=== PATIENT | male | born 1960 | race Caucasian/White ===

== ENCOUNTER → 2016-11-20 | Outpatient (CLI) | payer OTHER ==
[~2016-11-20] MED LIST: ASPI81TA28 PO; CHOL2000 PO; CRS/10 PO; CYAN10004 PO; DULA0.5I SQ; EMPA1TAB PO; EMPA1TAB3 PO; GLC/500 PO; GLIM4TAB2 PO; GLYB-108 PO; LISI-729 PO; LISI40TA PO; METF1TAB53 PO
[2016-11-20 19:10] LABS: LYME DISEASE AB IGG NEG (NEG); LYME DISEASE AB IGM NEG (NEG)
[2016-11-21 06:58] LABS: ESTIMATED AVERAGE GLUCOSE 189 mg/dl; HA1C FLAG Normal (Normal)
[2016-11-26 20:18] LABS: ACETYLCHOLINE RECEP MODULATING 21; ACETYLCHOLINE RECEPT BLOCKING <15 % inhibit (<15); ANTI-CENTROMERE AB <1.0 NEG AI (<1.0 NEG); ANTI-SS-A <1.0 NEG AI (<1.0 NEG); ANTI-SS-B <1.0 NEG AI (<1.0 NEG); DNA ds CRITHIDIA NEGATIVE (NEGATIVE); RECEPTOR BINDING AB <0.30 nmol/L (<=0.30); Sm Antibody <1.0 NEG AI (<1.0 NEG)
== END | disposition home or self-care (01) ==
LOC: C.LABMFLN 13:33
PROVIDERS: ATTEND Family Medicine
DX: E11.9 Type 2 diabetes mellitus without complications (principal); R29.898 Other symptoms and signs involving the musculoskeletal system

== ENCOUNTER → 2017-03-01 | Outpatient (CLI) | payer OTHER ==
[~2017-03-01] MED LIST changes: +RXC5 PO
[2017-03-01 13:15] LABS: CALCIUM 8.8 mg/dl (8.5-10.1)
[2017-03-01 13:17] LABS: BLOOD UREA NITROGEN 25 mg/dl (7-18); BUN/CREATININE RATIO 22.5 (10-20); CARBON DIOXIDE 26 mmol/L (21-32); CHLORIDE 99 mmol/L (98-107); GLUCOSE 340 mg/dl (70-99); PHOSPHORUS 2.6 mg/dl (2.5-4.9); POTASSIUM 4.8 mmol/L (3.5-5.1); SODIUM 133 mmol/L (136-145)
[2017-03-01 13:22] LABS: ESTIMATED AVERAGE GLUCOSE 212 mg/dl; HA1C FLAG Normal (Normal)
[2017-03-01 13:30] LABS: BETA-HYDROXYBUTYRATE 1.82 mg/dL (0.2-2.81)
== END | disposition home or self-care (01) ==
LOC: C.LABMFLN 10:44
PROVIDERS: ATTEND Family Medicine
DX: E11.9 Type 2 diabetes mellitus without complications (principal)

== ENCOUNTER → 2017-04-12 | Outpatient (CLI) | payer OTHER ==
[~2017-04-12] MED LIST changes: +GADAVIST IV PRN; -RXC5 PO
--- NOTE | 2017-04-12 10:35 | DIAGNOSTIC IMAGING REPORT ---
LUMBAR SPINE COMBINATION CLINICAL HISTORY: 57 years-old Male presenting with proximal leg weakness, lumbar radiculopathy. TECHNIQUE: Multiplanar, multisequence MR imaging of the lumbar spine was performed before and after the use of intravenous contrast. IV contrast: 11.5 mL of Gadavist. COMPARISON: None. FINDINGS: The spinal canal is mildly narrow on a developmental basis in the lower lumbar spine. Fatty degenerative endplate changes noted focally at L5-S1 (Modic type II). Otherwise normal height, alignment, and bone marrow signal intensity of the vertebral bodies. Intervertebral disc desiccation and height loss at L5-S1, where there is a disc bulge and disc left paramedian disc protrusion with slight cranial migration. This appears to enhance. Additional degenerative changes detailed below: T12-L1 normal. L1-2: Normal. L2-3: Mild facet arthropathy without significant neural foraminal narrowing. L3-4: Mild facet arthropathy with minimal bilateral neural foraminal narrowing. L4-5: Facet arthropathy and ligamentum flavum hypertrophy in combination with a mild disc bulge cause mild bilateral neural foraminal narrowing. 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 However, the cauda equina does not have a buckled appearance to suggest impingement. L5-S1: Mild facet hypertrophy in combination with the disc bulge results in mild bilateral neural foraminal narrowing. Disc protrusion and cranial migration cause effacement of the left paramedian spinal canal and left lateral recess. This abuts the transiting left S1 nerve root. Spinal cord ends in good position at the inferior endplate of L1. Cauda equina crowded as mentioned above at the level of L4-5. No abnormal enhancement on postcontrast imaging. Paraspinal soft tissues normal. IMPRESSION: 1. Lower lumbar degenerative changes at L4-5 and L5-S1. In combination with a mildly narrow spinal canal, degenerative change results in focal spinal stenosis at L4-5. The cauda equina does not have a buckled appearance to suggest impingement. Correlate clinically. Disc protrusion at L5-S1 abuts the transiting left S1 nerve root. Additional degenerative changes as above. Electronically signed by: Flo Membreno M.D. 04/12/2017 10:34 AM Dictated Date/Time: 04/12/2017 10:19 AM
== END | disposition home or self-care (01) ==
LOC: C.MRI 09:04
PROVIDERS: ATTEND Physician Assistant
DX: M54.16 Radiculopathy, lumbar region (principal); R29.898 Other symptoms and signs involving the musculoskeletal system; R29.2 Abnormal reflex

== ENCOUNTER → 2017-06-14 | Outpatient (CLI) | payer OTHER ==
[~2017-06-14] MED LIST changes: -GADAVIST IV PRN
[2017-06-14 13:41] LABS: ALT/SGPT 51 U/L (12-78); AST/SGOT 21 U/L (15-37); BLOOD UREA NITROGEN 24 mg/dl (7-18); BUN/CREATININE RATIO 24.3 (10-20); CALCIUM 9.2 mg/dl (8.5-10.1); CARBON DIOXIDE 25 mmol/L (21-32); CHLORIDE 103 mmol/L (98-107); CREATININE 0.97 mg/dl (0.60-1.40); GLUCOSE 177 mg/dl (70-99); SODIUM 137 mmol/L (136-145)
[2017-06-14 13:51] LABS: ALB/GLOB RATIO 1.1 (0.9-2); ALKALINE PHOSPHATASE 60 U/L (45-117); CHOLESTEROL 239 mg/dl (0-200); CHOLESTEROL/HDL RATIO 5.4; HDL CHOLESTEROL 44 mg/dl; LDL CHOLESTEROL CALCULATED 130 mg/dl; TRIGLYCERIDES 325 mg/dl (0-150); VERY LOW DENSITY LIPOPROT CALC 65 mg/dl
[2017-06-14 18:37] LABS: ESTIMATED AVERAGE GLUCOSE 192 mg/dl; HA1C FLAG Normal (Normal)
== END | disposition home or self-care (01) ==
LOC: C.LABMFLN 10:18
PROVIDERS: ATTEND Family Medicine
DX: E11.9 Type 2 diabetes mellitus without complications (principal); E78.5 Hyperlipidemia, unspecified; Z12.5 Encounter for screening for malignant neoplasm of prostate

== ENCOUNTER → 2017-06-15 | Outpatient (CLI) | payer OTHER | END | disposition home or self-care (01) | LOC: C.LABMFLN 08:36 | PROVIDERS: ATTEND Family Medicine | DX: E11.9 Type 2 diabetes mellitus without complications (principal) ==

== ENCOUNTER → 2017-07-07 | Outpatient (CLI) | payer OTHER ==
[~2017-07-07] MED LIST changes: -EMPA1TAB PO; -GLC/500 PO; -GLYB-108 PO; -LISI-729 PO
[2017-07-07 13:15] LABS: PROTHROMBIN TIME (PATIENT) 10.5 SECONDS (9.0-12.0)
== END | disposition home or self-care (01) ==
LOC: C.LABMFLN 10:47
PROVIDERS: ATTEND Physician Assistant
DX: Z01.818 Encounter for other preprocedural examination (principal)

== ENCOUNTER 2017-07-15 08:20 | Inpatient (IN) | payer OTHER ==
[2017-07-01 11:41] VITALS: BMI 37.0
--- NOTE | 2017-07-01 12:13 | PAT Medication Instructions ---
Service Date Jul 01, 2017. Current Home Medication List Aspirin (Aspirin Ec), 81 MG PO DAILY Cholecalciferol (Vitamin D3), 1 CAP PO QAM Cyanocobalamin (Vitamin B-12 1000 Mcg), 1,000 MCG PO QAM Dulaglutide (Trulicity), 1 DOSE SQ WEDNESDAY Empagliflozin (Jardiance), 25 MG PO QAM Glimepiride (Glimepiride), 1 TAB PO BID Lisinopril (Zestril), 40 MG PO QAM Metformin Hcl (Glucophage Ext Rel), 1,000 MG PO BID Rosuvastatin Calcium (Crestor), 10 MG PO HS Medication Instructions For Your Scheduled Surgery Dulaglutide (Trulicity), 1 DOSE SQ WEDNESDAY (continue as directed) - Hold the following medications 48 hours prior to surgery: Metformin Hcl (Glucophage Ext Rel), 1,000 MG PO BID - Hold the following medications the morning of surgery: Lisinopril (Zestril), 40 MG PO QAM Glimepiride (Glimepiride), 1 TAB PO BID Cholecalciferol (Vitamin D3), 1 CAP PO QAM Cyanocobalamin (Vitamin B-12 1000 Mcg), 1,000 MCG PO QAM Empagliflozin (Jardiance), 25 MG PO QAM - Take the following medications the morning of surgery with a sip of water: Aspirin (Aspirin Ec), 81 MG PO DAILY (okay to continue per surgeon) - Take the following medications as scheduled the night before surgery: Rosuvastatin Calcium (Crestor), 10 MG PO HS If you have any questions please call us at [phone] or [phone] or [phone]
--- NOTE | 2017-07-01 13:30 | DIAGNOSTIC IMAGING REPORT ---
CHEST PREADMISSION(PA/LAT) CLINICAL HISTORY: Preoperative evaluation. COMPARISON STUDY: No previous studies for comparison. FINDINGS: The lungs volumes are normal. No pneumothorax or pleural effusion is present. Pulmonary vascularity is normal and there is no consolidation to suggest pneumonia. There are numerous old bilateral rib fractures. Cardiomediastinal silhouette is normal. IMPRESSION: No acute cardiopulmonary findings. Electronically signed by: Maulik Cotton M.D. 07/01/2017 1:29 PM Dictated Date/Time: 07/01/2017 1:28 PM
[2017-07-01 13:35] LABS: BASO % 0.8 %; BASO ABS # 0.06 K/uL (0-0.2); COMPLETE YES; EOS % 2.1 %; HEMATOCRIT 47.6 % (42-52); IG% 0.3 %; LYMPH % 36.3 %; LYMPH ABS # 2.72 K/uL (1.2-3.4); MEAN CELL VOLUME 86.5 fL (80-100); MEAN CORPUSCULAR HGB CONC 34.7 g/dl (32-36); MEAN PLATELET VOLUME 11.7 fL (7.4-10.4); MONO % 7.1 %; NEUT % 53.4 %; PLATELET COUNT 186 K/uL (130-400)
[2017-07-01 13:42] LABS: URINE APPEARANCE CLEAR (CLEAR); URINE BILIRUBIN NEG (NEG); URINE COLOR YELLOW; URINE NITRITE NEG (NEG); URINE PH 6.5 (4.5-7.5); URINE SPECIFIC GRAVITY 1.037 (1.000-1.030); UROBILINOGEN NEG (NEG); ZZUR CULT IF INDIC CLEAN CATCH NO
[2017-07-01 13:51] LABS: MANUAL MICROSCOPIC REQUIRED? NO; REVIEW REQ? NO
[~2017-07-15] VITALS: Ht 175.3 cm; Wt 114.0 kg
[2017-07-15] VITALS (9 sets, daily range): BP systolic 116–156; BP diastolic 73–102; PULSE 72–110; TEMP 36.7–37.2; O2SAT 94–98; Ht 175.3 cm; Wt 114.0 kg
[~2017-07-15 08:20] MED LIST changes: +CEFAZOLIN 2000MG IV PUSH 10 ML IV SCH; +LACTATED RINGER'S 1000ML 1,000 ML IV SCH
[2017-07-15] MEDS ORDERED: ONDANSETRON INJ 2 MG/ML 2 ML VIAL IV PRN ×2 (09:00→12:15)
[2017-07-15] MEDS ORDERED: MoRPHine SULFATE 10 MG/ML CARP/VIAL IV PRN (09:00)
[2017-07-15] MEDS ORDERED: FENTANYL CITRATE INJ 50 MCG/1 ML 2 ML VIAL IV PRN (09:00)
[2017-07-15] MEDS ORDERED: ATROPINE SULFATE 0.1 MG/ML 5ML SYR IV PRN (09:00)
[2017-07-15] MEDS ORDERED: EpHEDrine SULFATE INJ 50 MG/ML AMP IV PRN (09:00)
--- NOTE | 2017-07-15 09:35 | History & Physical Bridge Note ---
H&P Re-Evaluation Bridge Note: I have examined the patient, reviewed the History & Physical and in the interval since the performance of the History & Physical I have noted the following changes of clinical significance: No changes noted
--- NOTE | 2017-07-15 09:36 | History and Physical ---
History & Physical Date Jul 15, 2017. Chief Complaint Back and leg pain History of Present Illness The patient is a 57 year old male with complaints of back and leg pain Additional History Hepatic Disease: No Endocrine Disorder: No Kidney Disease: No Hypertension: Yes Heart Disease: No Bleeding Tendencies: No Infectious Diseases: No Allergies Coded Allergies: No Known Allergies (Verified , 07/15/17) Home Medications Scheduled Aspirin (Aspirin Ec), 81 MG PO DAILY Cholecalciferol (Vitamin D3), 1 CAP PO QAM Cyanocobalamin (Vitamin B-12 1000 Mcg), 1,000 MCG PO QAM Dulaglutide (Trulicity), 1 DOSE SQ WEDNESDAY Empagliflozin (Jardiance), 25 MG PO QAM Glimepiride (Glimepiride), 1 TAB PO BID Lisinopril (Zestril), 40 MG PO QAM Metformin Hcl (Glucophage Ext Rel), 1,000 MG PO BID Physical Examination Skin: warm/dry, no rash Eyes: normal inspection, EOMI, sclerae normal ENT: normal ENT inspection, pharynx normal Head: normocephalic, atraumatic Neck: supple, no adenopathy, trachea midline Respiratory/Chest: lungs clear, normal breath sounds, no respiratory distress Cardiovascular: regular rate, rhythm, no edema, no murmur Abdomen / GI: normal bowel sounds, non tender Back: normal inspection Extremities: normal inspection, normal range of motion Neurologic/Psych: no motor/sensory deficits, alert, normal reflexes, oriented x 3 Diagnosis Lumbar spinal stenosis Plan of Treatment Lumbar decompression fusion L4 to S1
[2017-07-15] MEDS ORDERED: BACITRACIN 50000 UNIT VIAL ONE (09:52)
[2017-07-15] MEDS ORDERED: BUPIVACAINE/EPINEPHRINE 0.5% MPF 1:200,000 30 ML VIAL ONE (09:52)
[2017-07-15] MEDS ORDERED: DEXAMETHASONE SOD INJ 4 MG/ML VIAL ONE (09:57)
[2017-07-15] MEDS ORDERED: LIDOCAINE HCL 2% 2 ML VIAL (20MG/ML) ONE (09:57)
[2017-07-15] MEDS ORDERED: MIDAZOLAM HCL 1 MG/ML 2ML VIAL ONE (09:57)
[2017-07-15] MEDS ORDERED: FENTANYL CITRATE INJ 50 MCG/1 ML 2 ML VIAL ONE (09:57)
[2017-07-15] MEDS ORDERED: NEOSTIGMINE METHYLSULFATE 1 MG/ML 10ML VIAL ONE (09:57)
[2017-07-15] MEDS ORDERED: ONDANSETRON INJ 2 MG/ML 2 ML VIAL ONE ×2 (09:57→12:20)
[2017-07-15] MEDS ORDERED: PROPOFOL IV EMULSION 10 MG/ML 20 ML VIAL IV ONE (09:57)
[2017-07-15] MEDS ORDERED: GLYCOPYRROLATE INJ 0.2 MG/ML VIAL ONE (09:57)
[2017-07-15] MEDS ORDERED: HYDROmorphone INJ 2 MG/ML SYR/VIAL ONE (10:43)
[2017-07-15] MEDS ORDERED: PHENYLEPHRINE HCL INJ 10 MG/ML VIAL ONE (11:26)
[2017-07-15] MEDS ORDERED: PHENYLEPHRINE 100MCG/ML 5ML SYR ONE (11:26)
[2017-07-15] MEDS ORDERED: FLOSEAL HEMOSTATIC MATRIX 10ML TOP ONE (12:09)
[2017-07-15] MEDS ORDERED: SODIUM CHLORIDE 0.9% 1000ML 1,000 ML IV SCH (12:13)
[2017-07-15] MEDS ORDERED: MAGNESIUM HYDROXIDE SUSP 30 ML UDC PO PRN (12:15)
[2017-07-15] MEDS ORDERED: ACETAMINOPHEN IV 100 ML IV PRN (12:15)
[2017-07-15] MEDS ORDERED: PROMETHAZINE HCL INJ 12.5 MG in SODIUM CHLORIDE 0.9% 50ML 50 ML IV PRN (12:15)
[2017-07-15] MEDS ORDERED: NALOXONE HCL 0.4 MG/1 ML VIAL/CARP IV PRN ×2 (12:15)
[2017-07-15] MEDS ORDERED: hydrOXYzine HCL 25 MG TAB PO PRN (12:15)
[2017-07-15] MEDS ORDERED: FAMOTIDINE 20 MG TAB PO PRN (12:15)
[2017-07-15] MEDS ORDERED: ACETAMINOPHEN 500 MG TAB PO PRN (12:15)
[2017-07-15] MEDS ORDERED: DULAGLUTIDE SQ SCH (12:15)
[2017-07-15] MEDS ORDERED: BISACODYL 10 MG SUPP PR PRN (12:15)
[2017-07-15] MEDS ORDERED: LORAZEPAM INJ 0.5 MG in SYRINGE 0 ML IV PRN (12:15)
[2017-07-15] MEDS ORDERED: DO NOT ADMINISTER PNEUMOCOCCAL VACCINE PRN ×2 (12:15)
[2017-07-15] MEDS ORDERED: SOD PHOSPHATE/SOD BIPHOSPHATE ENEMA 132 ML BTL PR PRN (12:15)
[2017-07-15] MEDS ORDERED: ALUMINUM/MAGNESIUM SUSP 30 ML UDC PO PRN (12:15)
[2017-07-15] MEDS ORDERED: DO NOT ADMINISTER FLU VACCINE PRN ×3 (12:15)
[2017-07-15] MEDS ORDERED: LORAZEPAM 0.5 MG TAB PO PRN (12:15)
[2017-07-15] MEDS ORDERED: METOCLOPRAMIDE HCL INJ 5 MG/ML 2 ML VIAL IV PRN (12:15)
--- NOTE | 2017-07-15 12:19 | [facility] Operative Report ---
Operative Report Operative Date Jul 15, 2017. Pre-Operative Diagnosis Lumbar Spinal Stenosis Post-Operative Diagnosis same Procedure(s) Performed #1 lumbar decompression medial facetectomies foraminotomies L4 5 L5-S1. #2 posterior spinal fusion L4 5 L5-S1. #3 placement of posterior segmental instrumentation L4 5 L5-S1. #4 interbody fusion L5-S1. #5 placement peek cage 10 x 26 mm L5-S1. #6 placement locally harvested morcellized autograft and posterior gutters. #7 placement of ostial amp bone graft in the interbody space and posterior lateral gutters. Surgeon Dr. Vitor Escalera Anesthesiologist Surgeon(s) Yudy Escalante PA-C Estimated Blood Loss 400 ml Findings Severe spinal stenosis Specimens none per surgeon Description of Procedure Patient was met with preoperatively case discussed all questions addressed. After informed consent obtained patient was taken back to the operative suite underwent intubation placed in a prone position the [place] table top [place] frame. All bony prominences well-padded eyes inspected to ensure no external pressure placed upon them. This point the lumbar spine was prepped and draped nostril fashion. Sharp dissection with the assistance of Bovie cautery was performed onto an exposing the lamina and transverse processes of L4-L5 and sacral alar bilaterally. From a caudal to cephalad fashion complete laminectomy of L5 L4 was performed addressing severe lateral recess and foraminal stenosis. Pedicle screws are then placed in L4-L5 and S1 levels bilaterally with assistance of fluoroscopy the purposes kayla placed. Through a transforaminal approach a left complete discectomy of L5-S1 was performed and plate created to subcortical bleeding bone and a 10 x 22 mm peek cage filled with ostial amp bone graft tapped in position. Brought to then locked and final position bilaterally. The transverse processes of L4 L5 and sacral alar burred to subcortical bleeding bone. The remaining ostial amp local harvested morcellized autograft was placed and posterior gutters. Rods were locked and final position. 15 round CLARITA drain inserted. Incision was then closed with 1 Vicryl fascia 2-0 Vicryl subcutaneous tediously 4 Monocryl for Isatu closure Steri-Strips sterile dressings placed patient we can take PACU stable condition. Please note Yudy Garibay was present throughout the entire procedure involved in patient positioning complex portions of the surgery and final skin closure. I attest to the content of the Intraoperative Record and any orders documented therein. Any exceptions are noted below.
--- NOTE | 2017-07-15 12:19 | DIAGNOSTIC IMAGING REPORT ---
LUMBAR SPINE, INTRAOPERATIVE FLUOROSCOPY HISTORY: L4-S1 decompression and fusion. FLUOROSCOPY TIME: 19 seconds. FINDINGS: Intraoperative fluoroscopy was provided for the lumbar spine. 2 fluoroscopic spot images were obtained. Posterior decompression fusion from L4 through S1 with pedicle screws and rods. The hardware appears intact. IMPRESSION: Fluoroscopy provided for a L4-S1 posterior decompression and fusion. Electronically signed by: Lester Wood M.D. 07/15/2017 12:18 PM Dictated Date/Time: 07/15/2017 12:17 PM
[2017-07-15] MEDS ORDERED: ROCURONIUM BROMIDE 10 MG/ML 5 ML VIAL IV ONE (12:20)
[2017-07-15] MEDS ORDERED: PHARMACY GLYCEMIC MGMT CONSULT SCH (12:35)
[2017-07-15] MEDS: HYDROmorphone HCL 0.5MG/ML 50 ML CASSETTE IV PRN ×4 (12:47→23:14)
--- NOTE | 2017-07-15 13:07 | Anesthesiology Progress Note ---
Anesthesia Post Op Note Date & Time Jul 15, 2017 at 13:07 Vital Signs Pain Intensity: 0 Vital Signs Past 12 Hours Date Time Temp Pulse Resp B/P (MAP) Pulse Ox O2 Delivery O2 Flow Rate FiO2 07/15/17 12:35 36.8 79 11 98/87 95 Oxymask 10 07/15/17 08:40 37 103 20 156/102 94 Room Air Notes Mental Status: alert / awake / arousable, participated in evaluation Pt Amnestic to Procedure: Yes Nausea / Vomiting: adequately controlled Pain: adequately controlled Airway Patency, RR, SpO2: stable & adequate BP & HR: stable & adequate Hydration State: stable & adequate Anesthetic Complications: no major complications apparent
[2017-07-15] MEDS: LACTATED RINGER'S 1000ML 1,000 ML IV SCH ×2 (14:43→18:12)
--- NOTE | 2017-07-15 14:52 | Pharmacy Progress Note ---
Glycemic Control Intl Consult Date of Service Jul 15, 2017. Scope Glycemic Pharmacist consulted by Dr Escalera on 07/15/17 for glycemic control and to write orders per [facility] inpatient glycemic control protocol Objective Weight (Kilograms): 114.000 Accuchecks BSG (last 24hrs): Test 07/15/17 08:48 07/15/17 12:39 Bedside Glucose 134 mg/dl (70-99) 104 mg/dl (70-99) Recent Pertinent Medications Outpatient Anti-diabetic Regimen: * Trulicity once weekly, Jardiance 25 mg PO daily, Amaryl 4 mg PO BID, and metformin 1000 mg PO BID * A1c = 8.3 % 06/14/17 Risk Factors for Insulin Resistance: * Steroids: dexamethasone 8 mg IV x 1 in OR then 6 mg IV q8 hours x 3 doses * IVF: LR @150 mLs/hr * Recent Surgery: POD 0 for lumbar surgery * Diet: type 2 diabetic diet Assessment & Plan ASSESSMENT: * ADA & AACE recommend a goal blood sugar range 140-180 mg/dl for the majority of critically ill & non-critically ill patients. However, more stringent targets may be selected in individual cases. Will utilize more stringent goal of 110-140mg/dl based on patient age & comorbidities. Additionally, tighter glycemic control is warranted to facilitate wound healing. * Mr Styles is a 57 y/o M who was admitted after lumbar surgery with Dr Escalera. He is moderately controlled on three oral medications and an injectable GLP-1. The patient received high doses of steroids today, and these will continue until 10 AM tomorrow. Traditional dosing for Dr Escalera's steroids injection will be utilized. * For Lantus, full 24 hour weight based stress of 3 will be utilized today with stress of 2 and stress of 1 dosing utilized tomorrow. Dosing may change based upon patient response. Correctional insulin will also be utilized as weight- based stress of 3 currently and then this will be loosened tomorrow as appropriate. * Pt is maintained on oral antidiabetic agents as an outpatient * Oral agents are not recommended for inpatient use d/t drug interactions, changing PO intake, and difficulty titrating for acute hyper/hypoglycemia. ADA recommends re-initiating outpatient oral agents 1-2 days prior to discharge if/ when appropriate if they were held on admission. * oral medications will be held. Plan to restart metformin on POD 2 if adequate oral function and renal function established. PLAN FOR INPATIENT GLYCEMIC CONTROL: * Holding outpatient oral diabetes medications * Basal insulin with LANTUS 56 units SQ x 1 then Lantus 20 -30 units tomorrow morning (Lantus 20 units if BSG less than 180 mg/dL and 30 units if above 180 mg /dL) then Lantus 10 units tomorrow evening * Correctional Insulin with NOVOLOG per scale ACHS or Q6hrs while NPO * Goal Range: Low 110 mg/dL - High 140 mg/dL * Correction Factor: 15 mg/dL/unit * Nutritional / Prandial insulin per carb ratio of 1 unit per 5 grams CHO consumed * Please note that the plan above was derived based on current level of insulin resistance and hospital stress. These recommendations are appropriate for inpatient admission only. Plan of care upon discharge will need to be reassessed to avoid potential outpatient hypo/hyperglycemia. Thank you.
[2017-07-15] MEDS: INSULIN ASPART 100 UNITS/ML 3 ML PEN SC SCH ×3 (15:58→21:08)
[2017-07-15] MEDS ORDERED: INSULIN GLARGINE SOLOSTAR 100 UNITS/ML 3 ML PEN SC SCH ×2 (17:45)
[2017-07-15] MEDS: CEFAZOLIN IV 2,000 MG in SYRINGE 0 ML IV SCH (18:12)
[2017-07-15] MEDS: DEXAMETHASONE INJ 6 MG in SYRINGE 0 ML IV SCH (20:28)
[2017-07-15] MEDS: DOCUSATE SODIUM/SENNA 50/8.6MG TAB PO SCH (20:29)
[2017-07-16] VITALS (8 sets, daily range): BP systolic 100–144; BP diastolic 65–89; PULSE 82–118; TEMP 36.6–37; O2SAT 90–95
[2017-07-16] MEDS: INSULIN ASPART 100 UNITS/ML 3 ML PEN SC SCH ×6 (00:18→21:55)
[2017-07-16] MEDS: LACTATED RINGER'S 1000ML 1,000 ML IV SCH (00:19)
[2017-07-16] MEDS: CEFAZOLIN IV 2,000 MG in SYRINGE 0 ML IV SCH (02:14)
[2017-07-16] MEDS: DEXAMETHASONE INJ 6 MG in SYRINGE 0 ML IV SCH ×2 (04:04→12:48)
[2017-07-16] MEDS ORDERED: DC PCA ONE (06:00)
[2017-07-16] MEDS ORDERED: HYDROmorphone INJ 1 MG/ML SYR IV PRN (06:00)
[2017-07-16] MEDS ORDERED: HYDROmorphone INJ 0.5 MG/0.5 ML SYR IV PRN (06:00)
[2017-07-16 06:12] LABS: BASO % 0.1 %; BASO ABS # 0.01 K/uL (0-0.2); COMPLETE YES; HEMATOCRIT 40.9 % (42-52); IG% 0.2 %; LYMPH % 7.5 %; LYMPH ABS # 0.95 K/uL (1.2-3.4); MEAN CELL VOLUME 85.9 fL (80-100); MEAN CORPUSCULAR HEMOGLOBIN 29.4 pg (25-34); MEAN CORPUSCULAR HGB CONC 34.2 g/dl (32-36); MEAN PLATELET VOLUME 10.9 fL (7.4-10.4); MONO % 4.8 %; NEUT % 87.4 %; PLATELET COUNT 172 K/uL (130-400); RED BLOOD COUNT 4.76 M/uL (4.7-6.1)
[2017-07-16] MEDS ORDERED: NURSING VERBAL MED ORDER ONE (06:15)
[2017-07-16 06:26] LABS: BUN/CREATININE RATIO 15.4 (10-20); CALCIUM 8.7 mg/dl (8.5-10.1); CREATININE 0.96 mg/dl (0.60-1.40)
[2017-07-16] MEDS: OXYCODONE HCL IR 5 MG TAB (IMMEDIATE RELEASE) PO PRN ×3 (08:05→22:05)
--- NOTE | 2017-07-16 08:28 | Anesthesiology Progress Note ---
Anesthesia Post Op Note Date & Time Jul 16, 2017 at 08:27 Vital Signs Pain Intensity: 7.0 Vital Signs Past 12 Hours Date Time Temp Pulse Resp B/P (MAP) Pulse Ox O2 Delivery O2 Flow Rate FiO2 07/16/17 07:16 36.9 106 16 126/79 (95) 91 Room Air 07/16/17 07:00 Room Air 07/16/17 06:42 103 07/16/17 04:02 37.0 112 18 116/78 (91) 95 Nasal Cannula 4.0 07/16/17 00:15 Nasal Cannula 07/15/17 23:14 37.0 110 17 121/81 (94) 95 Nasal Cannula 4.0 Notes Mental Status: alert / awake / arousable, participated in evaluation Pt Amnestic to Procedure: Yes Nausea / Vomiting: adequately controlled Pain: adequately controlled Airway Patency, RR, SpO2: stable & adequate BP & HR: stable & adequate Hydration State: stable & adequate Anesthetic Complications: no major complications apparent
[2017-07-16] MEDS: ASPIRIN 81 MG ECTAB PO SCH (08:34)
[2017-07-16] MEDS: LISINOPRIL 40 MG TAB PO SCH (08:35)
[2017-07-16] MEDS ORDERED: INSULIN GLARGINE SOLOSTAR 100 UNITS/ML 3 ML PEN SC SCH ×4 (09:00→21:00)
[2017-07-16] MEDS ORDERED: NON-FORMULARY MEDICATION (Empagliflozin (Jardiance) 25 MG) PO SCH (09:00)
[2017-07-16] MEDS ORDERED: KETOROLAC TROMETHAMINE 30 MG/ML VIAL IV PRN (10:15)
--- NOTE | 2017-07-16 10:32 | Pharmacy Progress Note ---
Glycemic Control Progress Note Date of Service Jul 16, 2017. Scope Glycemic Pharmacist consulted for glycemic control to write orders per [facility] inpatient glycemic control protocol. Objective Accuchecks BSG (last 24hrs): Test 07/15/17 12:39 07/15/17 17:09 07/15/17 20:49 07/16/17 00:14 Bedside Glucose 104 mg/dl (70-99) 146 mg/dl (70-99) 151 mg/dl (70-99) 170 mg/dl (70-99) Test 07/16/17 04:05 07/16/17 05:38 07/16/17 07:39 Bedside Glucose 194 mg/dl (70-99) 165 mg/dl (70-99) Random Glucose 156 mg/dl (70-99) Recent Pertinent Medications The patient is currently receiving: * Basal insulin: Lantus 48 units SQ qPM on 07/15 * Correctional Insulin: Novolog Correction per scale ACHS Goal Range: Low 110 mg/dL - High 140 mg/dL Correction Factor: 15 mg/dL/unit * Prandial insulin: Per carb ratio of 1 unit per 5 grams CHO consumed * Oral Agents: on hold Outpatient Anti-Diabetic Meds Outpatient Anti-diabetic Regimen: * Trulicity once weekly, Jardiance 25 mg PO daily, Amaryl 4 mg PO BID, and metformin 1000 mg PO BID * A1c = 8.3 % 06/14/17 Assessment & Plan ASSESSMENT: * See progress note from 07/15/17 for more background info, in short: * Pt receiving SQ basal bolus insulin regimen for hyperglycemia secondary to baseline DM (outpatient regimen on hold), stress, recent surgery, steroids * Dexamethasone IV post operatively - last dose to be given today at 1200 * Patient received 65 units of insulin yesterday (not indicative of 24 hour needs): * 48 units of basal insulin * 17 units of prandial/correctional insulin * BSGs ranging 104 - 194 mg/dl over the past 24hrs * Changes needed to insulin regimen: * AM Fasting BSG = 165 mg/dl. This is slightly above goal range for patient based on inpatient targets and co-morbidities. I have adjusted Lantus dose parameters so that he receives 30 units this morning. Continue Lantus per scale HS. * Post-prandial BSGs are elevated due to IV steroids, therefore I will tighten CF/CR. This will likely need to be loosened 07/17 am as the effect of steroids will have worn off. PLAN FOR INPATIENT GLYCEMIC CONTROL: * Oral Agents * Continue to hold outpatient oral diabetes medications. * Resume metformin on 07/17. * Basal insulin - increase * Lantus 30 units SQ qAM * Lantus 10-20 SQ HS (10 units for BSG less than 150, 20 units for BSG 150 or more) * Bolus insulin - tighten * NovoLog per scale ACHS or Q6hrs while NPO * Goal Range: Low 110 mg/dL - High 140 mg/dL * Correction Factor: 12 mg/dL/unit * Nutritional / Prandial insulin per carb ratio of 1 unit per 4 grams CHO consumed RECOMMENDATIONS FOR DISCHARGE: * A1c 8.3% (06/14/17) - better control desired * Patient is on max dose of oral agents + Trulicity (GLP-1 receptor agonist) * Consider addition of insulin to home regimen. This can be achieved by adding once daily Lantus or substituting a combination product (basal insulin + GLP-1) in place of Trulicity. Decision should be based on patient preference and insurance coverage. * Option 1: Add Lantus 20 units SQ once daily * Option 2: Add Lantus/lixisenatide (Soliqua) 15 units/5 mcg SQ once daily, discontinue Trulicity * Please note that the plan above was derived based on current level of insulin resistance and hospital stress. These recommendations are appropriate for inpatient admission only. Plan of care upon discharge will need to be reassessed to avoid potential outpatient hypo/hyperglycemia. Thank you.
--- NOTE | 2017-07-16 12:23 | Progress Note ---
Progress Note Date of Service Jul 16, 2017. Progress Note Patient is doing quite well postop day 1. Back pain is controlled. Leg pain markedly improved. Vital signs are stable. He's on physical exam ambulating the halls comfortably. Good strength testing. Assessment status post lumbar decompression fusion. Planned this time will continue physical therapy advance his bowel regiment anticipate home this weekend.
[2017-07-16] MEDS ORDERED: RXC5 PO (12:40)
--- NOTE | 2017-07-16 12:41 | Discharge Instructions ---
Discharge Instructions Date of Service Jul 16, 2017. Admission Reason for Admission: Spinal Stenosis Discharge Discharge Diagnosis / Problem: lumber stenosis Discharge Goals Goal(s): Improve function Activity Recommendations Activity Limitations: per Instructions/Follow-up section . Instructions / Follow-Up Instructions / Follow-Up ACTIVITY RECOMMENDATIONS: SELF CARE INSTRUCTIONS AFTER THORACIC/LUMBAR FUSIONS 1. You may walk to your tolerance. It is good exercise for your legs and back. Expect some back and intermittent leg aches and pains. 2. You may perform "counter-top" level activities (make a sandwich, tam with a project, etc.). 3. No bending or lifting of more than 10 pounds or back twisting of any nature (roll like a log when turning in bed). 4. You may ride in a car for 20-30 minutes at a time. No driving until after your first visit with your doctor. 5. Frequent changes of position and restricting sitting to 30 minutes at a time will help limit the amount of back spasms and stiffness you may experience. 6. You may discontinue the use of ambulatory aids (cane, crutches, etc.) once your strength and confidence allow. 7. You may hvac r instructor the shower and let water strike your incision when you arrive home at least once daily. Do not take a tub bath, sit in a hot tub or go into a swimming pool until after your first recheck in the office. SPECIAL CARE INSTRUCTIONS: VERY IMPORTANT TO READ AND REVIEW A. Your surgical incision has been closed with a cosmetic suture under the skin that will dissolve in about 6 weeks. In 14 days, you can use a pair of clean scissors and cut the suture that is left outside of the skin at the ends of your incision. 1. The small skin tapes can be removed 7 days after surgery if they have not fallen off by that point. 2. You may keep the wound open to air as much as possible to promote healing after post-op day number 5 unless told otherwise by your doctor. 3. If you think the wound looks like it is becoming infected (redness or worsening drainage) and/or you are experiencing fever, chill or worsening back pain and muscle spasms, contact the office so that we may evaluate you as soon as possible. B. Complications are uncommon, but please contact us if you have any signs or symptoms of: 1. wound infection (fever higher than 102.5 degrees F, redness, separation of wound, drainage, or increasing pain from the incision) 2. blood clots in legs (pain, swelling, redness and warmth in legs) 3. urinary tract infection (fever higher than 102.5 degrees F, burning upon urination or increased frequency of urination) 4. nerve problems (inability to walk on your toes or heels, numbness, loss of bowel or bladder control) 5. any other symptoms that concern you C. Please call the office at if you have any concerns or questions about your operation or recovery. D. No smoking! Smoking drastically decreases the chance of a solid fusion. E. Do not take any anti-inflammatory medications (Indocin, Advil, Motrin, Aspirin, Naprosyn, etc.) as these may inhibit the chance of a solid fusion. Tylenol is okay to take for pain. MANAGING PAIN AFTER SPINAL SURGERY 1. Narcotic medication is intended for short-term use and will be provided for surgical pain. Surgical pain usually lasts for a period of 4-6 weeks. Narcotic medication includes Percocet, Vicodin, Darvocet, Tylenol #3 or Lortab. 2. Longer-term pain is more appropriately treated with non-narcotic medication such as Tylenol ES. 3. Muscle spasm is not appropriately treated with narcotics. Muscle relaxers such as Soma, Flexeril or Skelaxin can be used along with Tylenol ES. 4. Remember that we all live with some "aches and pains". This is not unusual or uncommon after an injury or as we get older. a. Back pain is expected and may include muscle spasms for 4 to 6 weeks after surgery. The pain should gradually improve. If the pain worsens for no apparent reason, please contact the office. b. Intermittent leg pain may also be experienced and should not be concerned about unless it worsens for no apparent reason. If so, please contact the office. 5. We will provide appropriate medication within the normal guidelines of their prescribed use. We will also be very cautious and aware of potential abuse and extended duration of patients' medication needs. a. Pain medications are for your comfort and to assist with sleep and rest so that the tissue can heal. They are not provided in order to return to normal activity and should not be used through the day. To do so or worsening pain at night can result from ongoing tissue damage and development of tolerance to the prescribed medicine. 6. Please allow 2-3 days to process refills. Prescriptions will not be mailed but must be picked up at the office. FOLLOW UP VISIT: Keep your scheduled follow-up appointment. Any questions, please call the office at . Current Hospital Diet Patient's current hospital diet: Diabetes Type 2 Diet Discharge Diet Recommended Diet: Regular Diet Procedures Procedures Performed: #1 lumbar decompression medial facetectomies foraminotomies L4 5 L5-S1. #2 posterior spinal fusion L4 5 L5-S1. #3 placement of posterior segmental instrumentation L4 5 L5-S1. #4 interbody fusion L5-S1. #5 placement peek cage 10 x 26 mm L5-S1. #6 placement locally harvested morcellized autograft and posterior gutters. #7 placement of ostial amp bone graft in the interbody space and posterior lateral gutters. Pending Studies Studies pending at discharge: no Laboratory Results Hemoglobin A1c Test 06/14/17 10:23 Range/Units Estimated Average Glucose 192 mg/dl Hemoglobin A1c 8.3 H 4.5-5.6 % Lipid Panel Test 06/14/17 10:23 Range/Units Triglycerides Level 325 H 0-150 mg/dl Cholesterol Level 239 H 0-200 mg/dl HDL Cholesterol 44 mg/dl Cholesterol/HDL Ratio 5.4 LDL Cholesterol, Calculated 130 mg/dl Medical Emergencies . Who to Call and When: Medical Emergencies: If at any time you feel your situation is an emergency, please call 911 immediately. . Non-Emergent Contact Non-Emergency issues call your: Primary Care Provider . "Provider Documentation" section prepared by Vitor Escalera. . VTE Core Measure Inpt VTE Proph given/why not?: Risa Mejia, SCD's
[2017-07-16] MEDS: DOCUSATE SODIUM/SENNA 50/8.6MG TAB PO SCH (21:52)
[2017-07-17] MEDS: INSULIN ASPART 100 UNITS/ML 3 ML PEN SC SCH ×6 (00:08→21:00)
[2017-07-17] MEDS: POLYETHYLENE (MIRALAX) 17 GM PACK PO SCH ×3 (05:38→17:53)
[2017-07-17 07:46] VITALS: BP 130/77; PULSE 96; TEMP 36.7; O2SAT 93
[2017-07-17] MEDS: ASPIRIN 81 MG ECTAB PO SCH (08:41)
[2017-07-17] MEDS: LISINOPRIL 40 MG TAB PO SCH (08:42)
[2017-07-17] MEDS: METFORMIN HCL 500 MG TAB PO SCH ×2 (08:42→17:58)
[2017-07-17] MEDS: OXYCODONE HCL IR 5 MG TAB (IMMEDIATE RELEASE) PO PRN ×3 (08:52→17:59)
--- NOTE | 2017-07-17 09:40 | Progress Note ---
Progress Note Date of Service Jul 17, 2017. Progress Note Back pain is controlled leg pain markedly improved. Vital signs are stable. An exam he is interior bedside as good strength testing. Assessment status post lumbar decompression fusion replant this time possible discharge home Wednesday.
[2017-07-17] MEDS: INSULIN GLARGINE SOLOSTAR 100 UNITS/ML 3 ML PEN SC SCH ×2 (10:09→21:06)
--- NOTE | 2017-07-17 13:03 | Pharmacy Progress Note ---
Glycemic Control Progress Note Date of Service Jul 17, 2017. Scope Glycemic Pharmacist consulted for glycemic control to write orders per [facility] inpatient glycemic control protocol. Objective Accuchecks BSG (last 24hrs): Test 07/16/17 17:09 07/16/17 21:16 07/17/17 00:04 07/17/17 03:46 Bedside Glucose 201 mg/dl (70-99) 177 mg/dl (70-99) 165 mg/dl (70-99) 140 mg/dl (70-99) Test 07/17/17 08:15 07/17/17 11:47 Bedside Glucose 124 mg/dl (70-99) 112 mg/dl (70-99) Recent Pertinent Medications The patient is currently receiving: * Basal insulin: Lantus 30 units qAM + 20 units qPM (07/16) * Correctional Insulin: Novolog Correction per scale ACHS Goal Range: Low 110 mg/dL - High 140 mg/dL Correction Factor: 12 mg/dL/unit * Prandial insulin: Per carb ratio of 1 unit per 4 grams CHO consumed * Oral Agents: on hold Outpatient Anti-Diabetic Meds * Trulicity once weekly, Jardiance 25 mg PO daily, Amaryl 4 mg PO BID, and metformin 1000 mg PO BID * A1c = 8.3 % 06/14/17 Assessment & Plan ASSESSMENT: * See progress note from 07/15/17 for more background info, in short: * Pt receiving SQ basal bolus insulin regimen for hyperglycemia secondary to baseline DM (outpatient regimen on hold), stress, recent surgery * Patient received 113 units of insulin yesterday * 50 units of basal insulin * 63 units of prandial/correctional insulin * BSGs ranging 124 - 216 mg/dl over the past 24hrs * Changes needed to insulin regimen: * AM Fasting BSG = 124 mg/dl. This is at goal range for patient based on inpatient targets and co-morbidities. * Post-prandial BSGs are at goal. * Will decrease both basal and bolus insulin since effect of steroids has worn off. PLAN FOR INPATIENT GLYCEMIC CONTROL: * Metformin 1000 mg PO BID * Continuing to hold other oral agents + Trulicity * Basal insulin - decrease * Lantus 0-10 units SQ q12 (0 units for BSG less than 100, 10 units for BSG 100 or more) * Bolus insulin - loosen * NovoLog per scale ACHS or Q6hrs while NPO * Goal Range: Low 110 mg/dL - High 140 mg/dL * Correction Factor: 18 mg/dL/unit * Nutritional / Prandial insulin per carb ratio of 1 unit per 6 grams CHO consumed RECOMMENDATIONS FOR DISCHARGE: * A1c 8.3% (06/14/17) - better control desired * Patient is on max dose of oral agents + Trulicity (GLP-1 receptor agonist) * Consider addition of insulin to home regimen. This can be achieved by adding once daily Lantus or substituting a combination product (basal insulin + GLP-1) in place of Trulicity. Decision should be based on patient preference and insurance coverage. * Option 1: Add Lantus 20 units SQ once daily * Option 2: Add Lantus/lixisenatide (Soliqua) 15 units/5 mcg SQ once daily, discontinue Trulicity * Please note that the plan above was derived based on current level of insulin resistance and hospital stress. These recommendations are appropriate for inpatient admission only. Plan of care upon discharge will need to be reassessed to avoid potential outpatient hypo/hyperglycemia. Thank you.
[2017-07-17 15:49] VITALS: BP 109/70; PULSE 90; TEMP 36.7; O2SAT 93
[2017-07-17] MEDS ORDERED: NURSING VERBAL MED ORDER ONE (18:15)
[2017-07-17] MEDS: DOCUSATE SODIUM/SENNA 50/8.6MG TAB PO SCH (21:03)
[2017-07-17 23:07] VITALS: BP 102/67; PULSE 90; TEMP 36.8; O2SAT 95
[2017-07-18] MEDS: OXYCODONE HCL IR 5 MG TAB (IMMEDIATE RELEASE) PO PRN ×3 (02:22→13:01)
[2017-07-18 07:00] VITALS: BP 114/73; PULSE 83; TEMP 36.8; O2SAT 92
[2017-07-18] MEDS: LISINOPRIL 40 MG TAB PO SCH (08:43)
[2017-07-18] MEDS: ASPIRIN 81 MG ECTAB PO SCH (08:44)
[2017-07-18] MEDS: METFORMIN HCL 500 MG TAB PO SCH (08:45)
[2017-07-18] MEDS: INSULIN ASPART 100 UNITS/ML 3 ML PEN SC SCH ×2 (08:50→12:55)
[2017-07-18] MEDS: INSULIN GLARGINE SOLOSTAR 100 UNITS/ML 3 ML PEN SC SCH (08:51)
--- NOTE | 2017-07-18 10:23 | Discharge Summary ---
Orthopedic Discharge Summary Admission Date/Reason Jul 15, 2017 at 09:30 Spinal Stenosis. Discharge Date/Disposition Jul 18, 2017 Home Diagnosis Principal Diagnosis: Lumbar spinal stenosis Admission Physical Exam As per Admitting History & Physical. Hospital Course Patient underwent lumbar decompression fusion tolerated this well as taken to the orthopedic floor postoperatively. Postoperative day #1 he was up and amatory progressed to postoperative day #2 posterior. #3 pain was well- controlled CLARITA drain decreased appropriately subsequent discharge home discharge orders and instructions found the chart for further review Discharge Instructions Please refer to the electronic Patient Visit Report (Discharge Instructions) for additional information.
[2017-07-18 10:53] VITALS: BP 114/73; PULSE 83; TEMP 36.8; O2SAT 92
== END 2017-07-18 15:00 | disposition home or self-care (01) | DRG 460 ==
LOC: C.ACU 08:20 → C.3E 09:30 → ENRESERV 13:06
PROVIDERS: ADMIT Orthopaedic Surgery Orthopaedic Surgery of the Spine; ATTEND Orthopaedic Surgery Orthopaedic Surgery of the Spine
PROC: 0SG10J1 Fusion of 2 or more Lumbar Vertebral Joints with Synthetic Substitute, Posterior Approach, Posterior Column, Open Approach (ICD-10-PCS; principal; 2017-07-15 10:15)
DX: M48.061 Spinal stenosis, lumbar region without neurogenic claudication (principal); Z79.82 Long term (current) use of aspirin

== ENCOUNTER → 2017-10-26 | Outpatient (CLI) | payer OTHER ==
[~2017-10-26] MED LIST changes: -CEFAZOLIN 2000MG IV PUSH 10 ML IV SCH; -CRS/10 PO; -LACTATED RINGER'S 1000ML 1,000 ML IV SCH; +RXC5 PO
[2017-10-26 18:26] LABS: ALBUMIN 3.9 gm/dl (3.4-5.0); BLOOD UREA NITROGEN 23 mg/dl (7-18); CALCIUM 9.8 mg/dl (8.5-10.1); CARBON DIOXIDE 25 mmol/L (21-32); CREATININE 1.47 mg/dl (0.60-1.40); GLUCOSE 148 mg/dl (70-99); POTASSIUM 4.1 mmol/L (3.5-5.1); SODIUM 136 mmol/L (136-145)
[2017-10-26 18:27] LABS: PHOSPHORUS 3.8 mg/dl (2.5-4.9)
[2017-10-27 05:45] LABS: HEMOGLOBIN A1C 7.6 % (4.5-5.6)
== END | disposition home or self-care (01) ==
LOC: C.LABMFLN 13:23
PROVIDERS: ATTEND Family Medicine
DX: E11.9 Type 2 diabetes mellitus without complications (principal)

== ENCOUNTER → 2017-10-29 | Outpatient (CLI) | payer OTHER ==
[2017-10-29 17:53] LABS: BLOOD UREA NITROGEN 22 mg/dl (7-18); CALCIUM 9.2 mg/dl (8.5-10.1); CARBON DIOXIDE 28 mmol/L (21-32); CREATININE 1.23 mg/dl (0.60-1.40); GLUCOSE 226 mg/dl (70-99); PHOSPHORUS 2.9 mg/dl (2.5-4.9); POTASSIUM 3.9 mmol/L (3.5-5.1); SODIUM 135 mmol/L (136-145)
== END | disposition home or self-care (01) ==
LOC: C.LABMFLN 12:11
PROVIDERS: ATTEND Family Medicine
DX: I10 Essential (primary) hypertension (principal)

== ENCOUNTER → 2018-02-11 | Outpatient (CLI) | payer OTHER ==
[2018-02-11 18:10] LABS: BASO % 0.5 %; BASO ABS # 0.04 K/uL (0-0.2); EOS % 1.3 %; EOS ABS # 0.11 K/uL (0-0.5); HEMATOCRIT 45.6 % (42-52); HEMOGLOBIN 15.7 g/dL (14.0-18.0); IG# 0.03 K/uL (0.00-0.02); LYMPH % 29.2 %; LYMPH ABS # 2.39 K/uL (1.2-3.4); MEAN CELL VOLUME 86.4 fL (80-100); MEAN CORPUSCULAR HEMOGLOBIN 29.7 pg (25-34); MEAN CORPUSCULAR HGB CONC 34.4 g/dl (32-36); MEAN PLATELET VOLUME 11.9 fL (7.4-10.4); MONO % 5.1 %; MONO ABS # 0.42 K/uL (0.11-0.59); NEUT % 63.5 %; PLATELET COUNT 229 K/uL (130-400); RED CELL DISTRIBUTION WIDTH CV 13.7 % (11.5-14.5); WHITE BLOOD COUNT 8.19 K/uL (4.8-10.8)
[2018-02-11 18:58] LABS: ALBUMIN 3.7 gm/dl (3.4-5.0); BLOOD UREA NITROGEN 18 mg/dl (7-18); CALCIUM 8.6 mg/dl (8.5-10.1); CARBON DIOXIDE 26 mmol/L (21-32); CREATININE 1.23 mg/dl (0.60-1.40); GLUCOSE 246 mg/dl (70-99); PHOSPHORUS 2.3 mg/dl (2.5-4.9); SODIUM 136 mmol/L (136-145)
[2018-02-12 06:48] LABS: HEMOGLOBIN A1C 8.1 % (4.5-5.6)
== END | disposition home or self-care (01) ==
LOC: C.LABMFLN 14:41
PROVIDERS: ATTEND Family Medicine
DX: R00.0 Tachycardia, unspecified (principal); E11.9 Type 2 diabetes mellitus without complications

== ENCOUNTER → 2018-05-23 | Outpatient (CLI) | payer OTHER ==
[2018-05-23 17:55] LABS: BLOOD UREA NITROGEN 14 mg/dl (7-18); CALCIUM 9.1 mg/dl (8.5-10.1); CARBON DIOXIDE 27 mmol/L (21-32); CREATININE 0.97 mg/dl (0.60-1.40); GLUCOSE 145 mg/dl (70-99); PHOSPHORUS 3.1 mg/dl (2.5-4.9); POTASSIUM 4.6 mmol/L (3.5-5.1); SODIUM 137 mmol/L (136-145)
[2018-05-23 20:00] LABS: CREATININE RANDOM URINE 65.3 mg/dl
[2018-05-24 05:38] LABS: HEMOGLOBIN A1C 9.2 % (4.5-5.6)
== END | disposition home or self-care (01) ==
LOC: C.LABMFLN 10:53
PROVIDERS: ATTEND Family Medicine
DX: E11.9 Type 2 diabetes mellitus without complications (principal)